=== PATIENT | female | born 1985 | race Caucasian/White ===

== ENCOUNTER 2016-11-14 21:25 | Emergency (ER) | payer SELFPAY ==
[2016-11-14 21:29] VITALS: BP 127/78
[2016-11-14] MEDS ORDERED: MORPHINE SULFATE 10 MG/ML INJ IV ONE (21:42)
[2016-11-14] MEDS ORDERED: NORMAL SALINE 1000 ML 1,000 ML IV ONE (21:43)
--- NOTE | 2016-11-14 21:53 | ER Document Report ---
ED Burn/Smoke/Toxic Fumes - General Chief Complaint: Sunburn Stated Complaint: POSSIBLE LEG BURN Time Seen by Provider: 11/14/16 21:31 Mode of Arrival: Medic Information source: Patient Notes: 30-year-old female presents to ED for sunburn second degree to bilateral legs knees down with blisters some of the blisters open. She states the sunburns were Wednesday. The pain is increased over the last couple days. - HPI Patient complains to provider of: Burn Onset: Other - Wednesday Where: Outdoors Quality of pain: Burning, Throbbing Severity: Severe Pain Level: 5 Context: Other - Sunburn Exposure to: Other - Sunburn Associated Symptoms: Other - pain in bilateral legs Other injuries: LLE, RLE - Related Data Allergies/Adverse Reactions: Penicillins Allergy (Verified 11/14/16 22:14) Sulfa (Sulfonamide Antibiotics) Allergy (Verified 11/14/16 22:14) Past Medical History - General Information source: Patient - Social History Smoking Status: Current Every Day Smoker Cigarette use (# per day): Yes - 1/2 ppd Chew tobacco use (# tins/day): No Smoking Education Provided: Yes - less than 1 min Frequency of alcohol use: Social Drug Abuse: Marijuana Occupation: disabled Lives with: Family Family History: Arthritis, CAD, COPD, DM, Hyperlipidemia, Hypertension, Malignancy. denies: Thyroid Disfunction - Past Medical History Cardiac Medical History: Reports: None Pulmonary Medical History: Reports: None EENT Medical History: Reports: None Neurological Medical History: Reports: Other - TBI Endocrine Medical History: Reports: None Renal/ Medical History: Reports: Hx Ectopic Malignancy Medical History: Reports: None GI Medical History: Reports: None Musculoskeltal Medical History: Reports None Skin Medical History: Reports None Psychiatric Medical History: Reports: None Traumatic Medical History: Reports: Hx Traumatic Brain Injury Infectious Medical History: Reports: None Past Surgical History: Reports: Hx Genitourinary Surgery - removal of ectopic and right tube, Hx Neurologic Surgery - TBI Physical Exam - Vital signs Vitals: Temp Pulse Resp BP Pulse Ox 97.8 F 103 H 16 127/78 H 100 11/14/16 21:28 11/14/16 21:28 11/14/16 21:28 11/14/16 21:28 11/14/16 21:28 Interpretation: Normal - General General appearance: Appears well, Alert - HEENT Head: Normocephalic, Atraumatic Eyes: Normal Pupils: PERRL - Respiratory Respiratory status: No respiratory distress Chest status: Nontender Breath sounds: Normal Chest palpation: Normal - Cardiovascular Rhythm: Regular Heart sounds: Normal auscultation Murmur: No - Abdominal Inspection: Normal Distension: No distension Bowel sounds: Normal Tenderness: Nontender Organomegaly: No organomegaly - Back Back: Normal, Nontender - Extremities General upper extremity: Normal inspection, Nontender, Normal color, Normal ROM , Normal temperature General lower extremity: Normal ROM, Normal temperature, Normal weight bearing. No: Taco's sign Calf: Tender, Other - Second-degree jacques from sunburn to bilateral lower extremities from knee to foot since Wednesday both legs have dark red very tender second-degree jacques with blisters some have already opened some have not.. No: Abrasion, Deformity, Ecchymosis, Instability, Laceration, Unable to bear weight Ankle: Tender - Second-degree jacques from sunburn to bilateral lower extremities from knee to foot since Wednesday both legs have dark red very tender second- degree jacques with blisters some have already opened some have not., Edema, Limited ROM - Due to tenderness from sunburn Foot: Tender - Second-degree jacques from sunburn to bilateral lower extremities from knee to foot since Wednesday both legs have dark red very tender second- degree jacques with blisters some have already opened some have not., Edema, Metatarsal compress. pain - 2 sunburn, No evidence of FB. No: Abrasion, Deformity, Ecchymosis, Instability, Nail injury, Navicular tenderness, Puncture wound, Unable to bear weight - Neurological Neuro grossly intact: Yes Cognition: Normal Orientation: AAOx4 [place] Coma Scale Eye Opening: Spontaneous [place] Coma Scale Verbal: Oriented [place] Coma Scale Motor: Obeys Commands [place] Coma Scale Total: 15 Speech: Normal Motor strength normal: LUE, RUE, LLE, RLE Sensory: Normal - Psychological Associated symptoms: Normal affect, Normal mood - Skin Skin Temperature: Warm Skin Moisture: Dry Skin Color: Normal Course - Re-evaluation Re-evalutation: 11/15/16 01:18 Bilateral legs were treated with bacitracin and Telfa and Kerlix dressing patient was given morphine and first arrival and then treated with Percocet before discharge and discharged home with prescription for Percocet. Patient is from [place] and will be returning home. Patient instructed to follow-up with her primary doctor at home as soon as she gets there to call before going home to schedule an appointment - Vital Signs Vital signs: Temp Pulse Resp BP Pulse Ox 97.8 F 103 H 16 127/78 H 100 11/14/16 21:40 11/14/16 21:40 11/14/16 21:40 11/14/16 21:40 11/14/16 21:40 Discharge - Discharge Clinical Impression: 2nd degree burn bilateral legs, sunburn Condition: Stable Disposition: HOME, SELF-CARE Additional Instructions: Sunburn Sunburn is caused by prolonged exposure to ultraviolet light. This can be natural sunlight or a tanning bed. Your symptoms may include redness or blistering of the skin, fatigue, weakness, and chills that last two or three days. Treatment includes antiinflammatory pain medication, rest, cooling baths, and moisturizing skin cream. Occasionally, cortisone-type medicine is required for severe sunburns. Antihistamines may be helpful if itching is severe as you heal. You should avoid any exposure to ultraviolet light for the next week or two so that further skin damage can be avoided. In the future, you should use sunscreens. Frequent or prolonged ultraviolet light exposure can cause premature skin aging, skin cancers, and wrinkles. Call the doctor if you are not improving in two or three days. Report any drainage, increasing swelling, fever, chills, or other signs of infection. Soap Cleansing Gently wash the wound daily using a mild soap (like Ivory, Phisoderm, Neutrogena). Use warm water, rubbing gently until all debris, ooze, and crusting have been washed from the wound. Allow to dry briefly (about 10 minutes) after cleaning. Repeat this cleansing at least three times a day for the first two days and then once or twice a day. Antibiotic Ointment Protection Your wounds are such that dressing them is not practical or optional. After cleansing, you should apply a thin coating of antibiotic ointment ( Bacitracin, not Neosporin) to the wounds at least three times daily. This lessens infection risk, and may decrease the amount of scarring. Use a q-tip or dull butter knife, not your finger, to apply this ointment. Any debris or ooze which builds up in the ointment should be gently rubbed off with a sterile gauze pad. Harder crusting may need to be gently scrubbed off with a clean wash cloth with soap and warm water, perhaps applying a warm, wet wash cloth to the wound for ten minutes first. Development of redness, severe itching, or blistering may mean allergy to the ointment. See the doctor. Cleaning legs well with soap and water, rinsing well, pat dry, apply bacitracin , and telpha pad then wrap with kerlix. Oral Narcotic Medication You have been given a prescription for pain control. This medication is a narcotic. It's best taken with food, as nausea can result if taken on an empty stomach. Don't operate machinery or drive within six hours of taking this medication. Do not combine this medicine with alcohol, or with any medication which can cause sedation (such as cold tablets or sleeping pills) unless you get permission from the physician. Narcotics tend to cause constipation. If possible, drink plenty of fluids and eat a diet high in fiber and fruits. Call your primary doctor before leaving to go home to schedule appointment for as soon as possible. Return to the ED if increased redness or you develop a fever. FOLLOW-UP CARE: If you have been referred to a physician for follow-up care, call the physician s office for an appointment as you were instructed or within the next two days. If you experience worsening or a significant change in your symptoms, notify the physician immediately or return to the Emergency Department at any time for re-evaluation. Prescriptions: Oxycodone HCl/Acetaminophen [Percocet 5-325 mg Tablet] 1 tab PO Q6HP PRN #20 tablet PRN Reason: Forms: Elevated Blood Pressure, Smoking Cessation Education
[2016-11-14] MEDS ORDERED: BACITRACIN ZINC OINTMENT 15 GM TP ONE (22:48)
[2016-11-14] MEDS ORDERED: BACITRACIN ZINC OINTMENT 15 GM ONE (23:12)
[2016-11-14] MEDS ORDERED: OXYCODONE-ACETAMINOPHEN 5-325 MG TABLET PO ONE (23:49)
== END 2016-11-14 23:58 | disposition home or self-care (01) ==
LOC: ER 21:25
DX: L55.1 Sunburn of second degree (principal); Z88.0 Allergy status to penicillin; F17.210 Nicotine dependence, cigarettes, uncomplicated; Z71.6 Tobacco abuse counseling; Z88.2 Allergy status to sulfonamides
CPT/HCPCS: 99283; 96361; 96374; J2270; J7030; J3490

== ENCOUNTER 2017-05-12 16:08 | Emergency (ER) | payer SELFPAY ==
[2017-05-12] MEDS ORDERED: LIDOCAINE 1% INJ-PF (10 MG/ML) 30 ML SDV INJ ONE (18:12)
--- NOTE | 2017-05-12 18:17 | ER Document Report ---
ED Head/Face/Scalp Injury - General Chief Complaint: Head Injury Stated Complaint: HEAD LACERATION Time Seen by Provider: 05/12/17 17:49 Mode of Arrival: Ambulatory Information source: Patient Notes: 31-year-old female presents to ED for head laceration to left eyebrow. She states she was with her mother in preop while her mother was getting a port inserted when she fell hitting the face onto the ground. TRAVEL OUTSIDE OF THE [place] IN LAST 30 DAYS: No - HPI Patient complains to provider of: Injury, Laceration, Swelling Injury to: Eyebrow Location of problem: Eyebrow Occurred: Just prior to arrival Where: Other - [facility] in pre op waiting Timing: Still present Context: Fell Loss consciousness: No loss of consciousness Remembers: Injury - Related Data Allergies/Adverse Reactions: Penicillins Allergy (Verified 11/14/16 22:14) Sulfa (Sulfonamide Antibiotics) Allergy (Verified 11/14/16 22:14) Past Medical History - General Information source: Patient - Social History Smoking Status: Current Every Day Smoker Cigarette use (# per day): Yes - 1/2 ppd Chew tobacco use (# tins/day): No Smoking Education Provided: Yes - 4 min Frequency of alcohol use: Social Drug Abuse: Marijuana Occupation: disabled Lives with: Family Family History: Arthritis, CAD, COPD, DM, Hyperlipidemia, Hypertension, Malignancy Patient has suicidal ideation: No Patient has homicidal ideation: No - Past Medical History Cardiac Medical History: Reports: None Pulmonary Medical History: Reports: None EENT Medical History: Reports: None Neurological Medical History: Reports: Hx Migraine Endocrine Medical History: Reports: None Renal/ Medical History: Reports: Hx Ectopic Malignancy Medical History: Reports: None GI Medical History: Reports: None Musculoskeltal Medical History: Reports None Skin Medical History: Reports None Psychiatric Medical History: Reports: None Traumatic Medical History: Reports: Hx Traumatic Brain Injury Infectious Medical History: Reports: None Past Surgical History: Reports: Hx Genitourinary Surgery - removal of ectopic and right tube, Hx Neurologic Surgery - TBI Review of Systems - Review of Systems Constitutional: No symptoms reported EENT: No symptoms reported Cardiovascular: No symptoms reported Respiratory: No symptoms reported Gastrointestinal: No symptoms reported Genitourinary: No symptoms reported Female Genitourinary: No symptoms reported Musculoskeletal: No symptoms reported Skin: Other - Laceration to left eyebrow Hematologic/Lymphatic: No symptoms reported Neurological/Psychological: No symptoms reported -: Yes All other systems reviewed and negative Physical Exam - Vital signs Vitals: Temp Pulse Resp BP Pulse Ox 97.9 F 65 16 104/67 100 05/12/17 16:17 05/12/17 16:17 05/12/17 16:17 05/12/17 16:17 05/12/17 16:17 Interpretation: Normal - General General appearance: Appears well, Alert - HEENT Head: Ecchymosis, Open wounds - Laceration to left eyebrow, Tenderness Eyes: Normal Pupils: PERRL Ears: Normal External canal: Normal Tympanic membrane: Normal Sinus: Normal Nasal: Normal Mouth/Lips: Normal Mucous membranes: Normal Pharynx: Normal Neck: Normal - Respiratory Respiratory status: No respiratory distress Chest status: Nontender Breath sounds: Normal Chest palpation: Normal - Cardiovascular Rhythm: Regular Heart sounds: Normal auscultation Murmur: No - Abdominal Inspection: Normal Distension: No distension Bowel sounds: Normal Tenderness: Nontender Organomegaly: No organomegaly - Back Back: Normal, Nontender - Extremities General upper extremity: Normal inspection, Nontender, Normal color, Normal ROM , Normal temperature General lower extremity: Normal inspection, Nontender, Normal color, Normal ROM , Normal temperature, Normal weight bearing. No: Taco's sign - Neurological Neuro grossly intact: Yes Cognition: Normal Orientation: AAOx4 [place] Coma Scale Eye Opening: Spontaneous [place] Coma Scale Verbal: Oriented [place] Coma Scale Motor: Obeys Commands [place] Coma Scale Total: 15 Speech: Normal Motor strength normal: LUE, RUE, LLE, RLE Sensory: Normal - Psychological Associated symptoms: Normal affect, Normal mood - Skin Skin Temperature: Warm Skin Moisture: Dry Skin Color: Normal Skin irregularity: Laceration Location of irregularity: Face - left eyebrow Course - Re-evaluation Re-evalutation: 05/12/17 19:30 Patient instructed to keep the area clean and dry there were sent off to the drainage off and to read return to her primary care doctor in 3 days to have it reassessed in 5 days to have the sutures removed. Patient also encouraged to use sunscreen for the first 2 years to reduce scarring - Vital Signs Vital signs: Temp Pulse Resp BP Pulse Ox 97.9 F 65 16 104/67 100 05/12/17 16:17 05/12/17 16:17 05/12/17 16:17 05/12/17 16:17 05/12/17 16:17 Procedures - Laceration/Wound Repair Left eyebrow Time completed: 19:27 Wound length (cm): 2 Wound's Depth, Shape: Superficial, Linear Laceration pre-procedure: Sterile PPE donned, Sterile drapes applied, Shur- Clens applied Anesthetic type: Other - l.e.t. Volume Anesthetic (mLs): 3 - plus 5 ml of L.E.T. Wound explored: Clean Irrigated w/ Saline (mLs): 100 Wound Repaired With: Sutures Suture Size/Type: 5:0, Ethilon Number of Sutures: 4 Layer Closure?: No Post-procedure wound care: Other - Bacitracin Post-procedure NV exam normal: Yes Complications: No Discharge - Discharge Clinical Impression: Laceration of left eyebrow Qualifiers: Encounter type: initial encounter Qualified Code(s): S01.112A - Laceration without foreign body of left eyelid and periocular area, initial encounter Condition: Stable Disposition: HOME, SELF-CARE Instructions: Family Physicians / Practices Additional Instructions: Facial Laceration A laceration on the face usually heals quickly. Our treatment goal will be to avoid an unsightly scar or stitch-britton. Your cut has been closed with the best techniques to avoid scarring, but a great deal depends on how well you protect the laceration -- and on your inherited tendency to scar. As facial cuts are usually caused by a blunt injury, it's usually best to rest for a day to avoid swelling. Do not allow any bumping or rubbing of the area. Keep the stitches dry. Follow the treatment plan the doctor has discussed with you and DO NOT DELAY getting the stitches out. Once stitches are removed, continue to protect the area from trauma and sunlight (use a sunscreen) for about six months. If any signs of infection occur (swelling, redness, increasing tenderness, red streaks, tender lumps in the neck or near the ear on the side of the laceration, or fever), see the doctor immediately. Acetaminophen Acetaminophen may be taken for pain relief or fever control. It's much safer than aspirin, offering a wider range of "safe" dosages. It is safe during . Some brand names are Tylenol, Panadol, Datril, Anacin 3, Tempra, and Liquiprin. Acetaminophen can be repeated every four hours. The following are maximum recommended dosages: WEIGHT Dose Drops Elixir Chewable( 80mg) (LBS.) drprs=droppers tsp=teaspoon 6 40 mg .4 ml (1/2) 6-11 80 mg .8 ml (full) 1/2 tsp 1 tab 12-16 120 mg 1 1/2 drprs 3/4 tsp 1 1/2 tabs 17-23 160 mg 2 drprs 1 tsp 2 tabs 24-30 240 mg 3 drprs 1 1/2 tsp 3 tabs 30-35 320 mg 2 tsp 4 tabs 36-41 360 mg 2 1/4 tsp 4 1 /2 tabs 42-47 400 mg 2 1/2 tsp 5 tabs 48-53 480 mg 3 tsp 6 tabs 54-59 520 mg 3 1/4 tsp 6 1 /2 tabs 60-64 560 mg 3 1/2 tsp 7 tabs 65-70 600 mg 3 3/4 tsp 7 1 /2 tabs 71-76 640 mg 4 tsp 8 tabs 77-82 720 mg 4 1/2 tsp 9 tabs 83-88 800 mg 5 tsp 10 tabs >89 pounds or adults 650 mg to 900 mg Acetaminophen can be repeated every four hours. Maximum daily dose not to exceed 4000 mg. These maximum recommended dosages are slightly higher than the dosages written on the product container, but these dosages are very safe and well below the toxic dosage for acetaminophen. SOAP CLEANSING: Gently wash the wound daily using a mild soap (like Ivory, Phisoderm, Neutrogena). Use warm water, rubbing gently until all debris, ooze, and crusting have been washed from the wound. Allow to dry briefly (about 10 minutes) after cleaning. Repeat this cleansing at least three times a day for the first two days and then once or twice a day. ANTIBIOTIC OINTMENT PROTECTION: Your wounds are such that dressing them is not practical or optional. After cleansing, you should apply a thin coating of antibiotic ointment ( Bacitracin, not Neosporin) to the wounds at least three times daily. This lessens infection risk, and may decrease the amount of scarring. Use a q-tip or dull butter knife, not your finger, to apply this ointment. Any debris or ooze which builds up in the ointment should be gently rubbed off with a sterile gauze pad. Harder crusting may need to be gently scrubbed off with a clean wash cloth with soap and warm water, perhaps applying a warm, wet wash cloth to the wound for ten minutes first. Development of redness, severe itching, or blistering may mean allergy to the ointment. See the doctor. FOLLOW-UP CARE: Please return in ___2__ days for an infection check and dressing change. Your sutures should be removed in __5___ days. To facilitate a timely removal of your sutures, you may return to the Emergency Department at [facility]. You do not need to call for an appointment, but the best time to come in for suture removal is early in the morning. If you have been referred to another physician for follow-up care, call that physicians office for an appointment as you were instructed. If you experience a significant change in your laceration, or if you are concerned there may be an infection (swelling, redness, drainage, increasing tenderness, red streaks, tender lumps in the armpit or groin above the laceration, or fever) , return to the Emergency Department immediately re-evaluation. Forms: Smoking Cessation Education
[2017-05-12] MEDS ORDERED: LIDOCAINE 4%/TETRACAINE 0.5%/EPI 0.18% 5 ML TOPICAL SOLN TOP ONE (18:35)
[2017-05-12 19:44] VITALS: BP 103/65
== END 2017-05-12 19:40 | disposition home or self-care (01) ==
LOC: ER 16:08
PROC: 0HQ1XZZ Repair Face Skin, External Approach (ICD-10-PCS; principal; 2017-05-12)
DX: S01.112A Laceration without foreign body of left eyelid and periocular area, initial encounter (principal); W19.XXXA Unspecified fall, initial encounter; F17.210 Nicotine dependence, cigarettes, uncomplicated
CPT/HCPCS: 99282; 12011; J3490 ×2

== ENCOUNTER 2017-11-11 01:59 | Emergency (ER) | payer SELFPAY ==
[2017-11-11] MEDS ORDERED: NORMAL SALINE 1000 ML 500 ML IV ONE (02:22)
[2017-11-11] MEDS ORDERED: LEVETIRACETAM 500 MG/NACL-ISO 500 MG/100 ML RTUPB IV ONE (02:22)
[2017-11-11] MEDS ORDERED: DIPHENHYDRAMINE HCL 50 MG/ML VIAL IV ONE (02:22)
[2017-11-11] MEDS ORDERED: METOCLOPRAMIDE HCL INJ/PF 10 MG/2 ML SDV IV ONE (02:22)
--- NOTE | 2017-11-11 02:24 | ER Document Report ---
ED Seizure - General Chief Complaint: Seizure Stated Complaint: POSSIBLE SEIZURE Time Seen by Provider: 11/11/17 02:09 Notes: Patient is a 31-year-old female with a history of traumatic brain injury and seizures (injury 3 years ago, left sided hemiparesis, seizures for the past 2 years, on Topamax), that comes emergency department for chief complaint of a tonic-clonic seizure lasting for 5 minutes. Last seizure was 2 months ago. Patient was witnessed beginning to have a seizure and eased to the ground by sister and mother. No fever, no vomiting, patient did have alcohol in celebration of the holiday. Patient states she has been compliant with her Topamax. Patient complains of a headache but no other complaints at this time. Patient is visiting from [place]. - Related Data Allergies/Adverse Reactions: Penicillins Allergy (Verified 11/14/16 22:14) Sulfa (Sulfonamide Antibiotics) Allergy (Verified 11/14/16 22:14) metoclopramide [From Reglan] Adverse Reaction (Verified 11/11/17 02:55) Past Medical History - General Information source: Patient, Relative - Sister - Social History Smoking Status: Current Every Day Smoker Chew tobacco use (# tins/day): No Frequency of alcohol use: Occasional Drug Abuse: None Lives with: Family Family History: Arthritis, CAD, COPD, DM, Hyperlipidemia, Hypertension, Malignancy Patient has suicidal ideation: No Patient has homicidal ideation: No Neurological Medical History: Reports: Hx Migraine, Hx Seizures Renal/ Medical History: Reports: Hx Ectopic . Denies: Hx Peritoneal Dialysis Traumatic Medical History: Reports: Hx Traumatic Brain Injury Past Surgical History: Reports: Hx Genitourinary Surgery - removal of ectopic and right tube, Hx Neurologic Surgery - TBI Review of Systems - Review of Systems Constitutional: No symptoms reported EENT: No symptoms reported Cardiovascular: No symptoms reported Respiratory: No symptoms reported Gastrointestinal: No symptoms reported Genitourinary: No symptoms reported Female Genitourinary: No symptoms reported Musculoskeletal: No symptoms reported Skin: No symptoms reported Hematologic/Lymphatic: No symptoms reported Neurological/Psychological: See HPI Physical Exam - Vital signs Vitals: Resp Pulse Ox 20 97 11/11/17 02:34 11/11/17 02:34 - Notes Notes: GENERAL: Alert, interacts well. No acute distress. HEAD: Normocephalic, atraumatic. EYES: Pupils equal, round, and reactive to light. Extraocular movements intact. ENT: Oral mucosa moist, tongue midline. NECK: Full range of motion. Supple. Trachea midline. LUNGS: Clear to auscultation bilaterally, no wheezes, rales, or rhonchi. No respiratory distress. HEART: Regular rate and rhythm. No murmur ABDOMEN: Soft, non-tender. Non-distended. Bowel sounds present in all 4 quadrants. EXTREMITIES: Moves all 4 extremities spontaneously. No edema, normal radial and dorsalis pedis pulses bilaterally. No cyanosis. BACK: no cervical, thoracic, lumbar midline tenderness. No saddle anesthesia, normal distal neurovascular exam. NEUROLOGICAL: Alert and oriented x3. Normal speech. Cranial nerves unremarkable. Patient with left-sided arm and leg deficit, almost no strength in both of these. Normal neurological examination otherwise. PSYCH: Normal affect, normal mood. SKIN: Warm, dry, normal turgor. No rashes or lesions noted. Course - Re-evaluation Re-evalutation: Patient is alert and well-appearing. Chronic left-sided hemiparesis. Reported drinking alcohol. Because of the alcohol and the extended seizure, patient was given IV fluids, Keppra, workup performed. No more alcohol in her system. Unremarkable workup. Patient complaining of headache, she is medicated for this , afterwards headache resolved. Patient drowsy but arousable. Requesting to go home. Patient has neurologist [facility], advised avoiding alcohol, discussed follow-up and return precautions in detail, patient and sister state understanding and agreement. Stable at time of discharge. - Vital Signs Vital signs: Temp Pulse Resp BP Pulse Ox 98.0 F 16 104/71 94 11/11/17 02:54 11/11/17 04:01 11/11/17 04:00 11/11/17 04:01 - Laboratory Result Diagrams: 11/11/17 02:30 11/11/17 02:30 Laboratory results interpreted by me: 11/11/17 11/11/17 02:30 02:30 Lymphocytes % 46.6 H Chloride 108 H Discharge - Discharge Clinical Impression: Seizure disorder, Seizure Condition: Stable Disposition: HOME, SELF-CARE Additional Instructions: No concerning findings were noted on laboratory evaluation. You were given a dose of Keppra and IV fluids tonight. Avoid alcohol. Follow-up with your neurologist for additional evaluation and management. Continue current medications. Return for any concerning symptoms including severe headache, repeat seizures, fever, or any other concerning or worsening symptoms.
[2017-11-11] MEDS ORDERED: KETOROLAC TROMETHAMINE INJ/PF 30 MG/1 ML SDV IV ONE (02:54)
[2017-11-11 02:59] LABS: ABSOLUTE EOSINOPHILS # (AUTO) 0.1 10^3/uL (0.0-0.6); ABSOLUTE LYMPHOCYTES (AUTO) 3.4 10^3/uL (0.5-4.7); ABSOLUTE MONOCYTES (AUTO) 0.5 10^3/uL (0.1-1.4); ABSOLUTE NEUT (AUTO) 3.2 10^3/uL (1.7-8.2); BASOPHILS % (AUTO) 0.5 % (0-2); EOSINOPHILS % (AUTO) 1.6 % (0-6); HEMATOCRIT 37.5 % (36.0-47.0); HEMOGLOBIN 12.9 g/dL (12.0-15.5); LYMPHOCYTES % (AUTO) 46.6 % (13-45); MEAN CORPUSCULAR HEMOGLOBIN 32.2 pg (27.0-33.4); MEAN CORPUSCULAR HGB CONC 34.5 g/dL (32.0-36.0); MEAN CORPUSCULAR VOLUME 93 fl (80-97); MONOCYTES % (AUTO) 6.7 % (3-13); PLATELET COUNT 187 10^3/uL (150-450); RED BLOOD COUNT 4.02 10^6/uL (3.72-5.28); RED CELL DISTRIBUTION WIDTH 13.3 % (11.5-14.0); SEGMENTED NEUTROPHILS % (AUTO) 44.6 % (42-78); TOTAL CELLS COUNTED % (AUTO) 100 %; WHITE BLOOD COUNT 7.3 10^3/uL (4.0-10.5)
[2017-11-11] MEDS ORDERED: PROMETHAZINE HCL 25 MG TABLET PO ONE (03:05)
[2017-11-11 03:10] LABS: ALANINE AMINOTRANSFERASE 28 U/L (9-52); ALBUMIN 3.9 g/dL (3.5-5.0); ALKALINE PHOSPHATASE 52 U/L (38-126); ANION GAP 11 (5-19); ASPARTATE AMINO TRANSFERASE 19 U/L (14-36); BILIRUBIN,DIRECT 0.2 mg/dL (0.0-0.4); BILIRUBIN,TOTAL 0.2 mg/dL (0.2-1.3); BLOOD UREA NITROGEN 9 mg/dL (7-20); CALCIUM 9.3 mg/dL (8.4-10.2); CARBON DIOXIDE 24 mmol/L (22-30); CHLORIDE 108 mmol/L (98-107); GLUCOSE 108 mg/dL (75-110); POTASSIUM 3.8 mmol/L (3.6-5.0); SODIUM 143.1 mmol/L (137-145); TOTAL PROTEIN 6.5 g/dL (6.3-8.2)
[2017-11-11 03:13] LABS: ALCOHOL < 10 mg/dL (NONE DETECTED)
[2017-11-11 04:09] VITALS: BP 104/71
== END 2017-11-11 04:20 | disposition home or self-care (01) ==
LOC: ER 01:59
DX: G40.909 Epilepsy, unspecified, not intractable, without status epilepticus (principal); R51 Headache; Z87.820 Personal history of traumatic brain injury; F17.200 Nicotine dependence, unspecified, uncomplicated
CPT/HCPCS: 99284; 96374; 96375; 36415; 80307; 83735; 84703; 85025; 80053; J1200; J1885; J7030; J1953; J2765

== ENCOUNTER 2018-08-28 10:11 | Emergency (ER) | payer SELFPAY ==
[2018-08-28 10:16] VITALS: BP 115/75
[2018-08-28] MEDS ORDERED: HYDROCODONE/ACETAMINOPHEN 5-325 MG TABLET PO ONE (10:25)
--- NOTE | 2018-08-28 10:27 | ER Document Report ---
HPI - HPI Patient complains to provider of: Pain left shoulder and clavicle times 3 days woke up with pain Time Seen by Provider: 08/28/18 10:21 Onset: Other - Today's Onset/Duration: Constant Quality of pain: Sharp Severity: Severe Pain Level: 5 Context: 32-year-old female presents to ED for complaint of left shoulder and clavicle pain. She states she woke up this way 3 days ago and she thinks she had a seizure during the night. She has a history of seizures. She had a traumatic injury causing a brain bleed and she now has seizures. She states there was broken glass in the morning when her shoulder was hurting so she sure she injured her shoulder at the stop and seen by since this happened. Patient is alert oriented respirations regular and unlabored speaking in full sentences. She states she always has weakness to the left arm since her brain injury. Associated Symptoms: Other - Left shoulder and clavicle pain Exacerbated by: Movement Relieved by: Denies Similar symptoms previously: Yes Recently seen / treated by doctor: No - ROS ROS below otherwise negative: Yes - CONSTITUTIONAL Constitutional: DENIES: Fever, Chills - EENT EENT: DENIES: Sore Throat, Ear Pain, Nasal Drainage-Clear, Nasal Drainage- Purulent, Congestion, Eye problems - NEURO Neurology: DENIES: Headache, Weakness, Vision blurred, Dizzinesss / Vertigo - CARDIOVASCULAR Cardiovascular: DENIES: Chest pain - RESPIRATORY Respiratory: DENIES: Trouble Breathing, Coughing - GASTROINTESTINAL Gastrointestinal: DENIES: Abdominal Pain, Nausea, Patient vomiting, Diarrhea, Constipation, Black / Bloody Stools - URINARY Urinary: DENIES: Dysuria, Urgency, Frequency - REPRODUCTIVE Reproductive: DENIES: :, Postmenopausal, Abnormal bleeding / discharge - MUSCULOSKELETAL Musculoskeletal: REPORTS: Extremity pain - Left shoulder and clavicle milli. DENIES: Back Pain, Neck Pain, Swelling - DERM Skin Color: Normal Skin Problems: None Past Medical History - General Information source: Patient - Social History Smoking Status: Current Every Day Smoker Cigarette use (# per day): Yes - Pack per day Chew tobacco use (# tins/day): No Frequency of alcohol use: Social Drug Abuse: None Lives with: Family Family History: Arthritis, CAD, COPD, DM, Hyperlipidemia, Hypertension, Malignancy Patient has suicidal ideation: No Patient has homicidal ideation: No - Past Medical History Cardiac Medical History: Reports: None Pulmonary Medical History: Reports: None Neurological Medical History: Reports: Hx Cerebrovascular Accident - Had a traumatic injury causing a brain bleed, Hx Migraine, Hx Seizures Endocrine Medical History: Reports: None Renal/ Medical History: Reports: Hx Ectopic Malignancy Medical History: Reports: None GI Medical History: Reports: None Musculoskeletal Medical History: Reports Hx Muscle Spasm, Reports Hx Muscle Weakness - Left-sided weakness Skin Medical History: Reports None - Left side Psychiatric Medical History: Reports: None Traumatic Medical History: Reports: Hx Traumatic Brain Injury Infectious Medical History: Reports: None Past Surgical History: Reports: Hx Genitourinary Surgery - removal of ectopic and left tube, Hx Neurologic Surgery - TBI with brain bleed - Immunizations Immunizations up to date: Yes Hx Diphtheria, Pertussis, Tetanus Vaccination: Yes Vertical Provider Document - CONSTITUTIONAL Agree With Documented VS: Yes Exam Limitations: No Limitations General Appearance: WD/WN, No Apparent Distress - INFECTION CONTROL TRAVEL OUTSIDE OF THE [place] IN LAST 30 DAYS: No - HEENT HEENT: Atraumatic, Normal ENT Exam, Normocephalic, PERRLA - NECK Neck: Normal Inspection, Supple - RESPIRATORY Respiratory: Breath Sounds Normal, No Respiratory Distress, Chest Non-Tender - CARDIOVASCULAR Cardiovascular: Regular Rate, Regular Rhythm, No Murmur - BACK Back: Normal Inspection - MUSCULOSKELETAL/EXTREMETIES Musculoskeletal/Extremeties: Tender - Left shoulder. negative: FROM - Decreased range of motion left shoulder since her traumatic brain injury and stroke, Edema, Eccymosis - NEURO Level of Consciousness: Awake, Alert, Appropriate Motor/Sensory: Weak Motor Strength LUE - DERM Integumentary: Warm, Dry, No Rash Course - Vital Signs Vital signs: Temp Pulse Resp BP Pulse Ox 98.0 F 100 16 115/75 100 08/28/18 10:15 08/28/18 10:15 08/28/18 10:15 08/28/18 10:15 08/28/18 10:15 - Diagnostic Test Radiology reviewed: Image reviewed, Reports reviewed Procedures - Immobilization Left Shoulder Time completed: 10:37 Pre-Proc Neuro Vasc Exam: Normal Immobilizer type: Sling Performed by: PCT Post-Proc Neuro Vasc Exam: Normal Alignment checked and good: Yes Discharge - Discharge Clinical Impression: Left shoulder pain Qualifiers: Chronicity: acute Qualified Code(s): M25.512 - Pain in left shoulder Condition: Stable Disposition: HOME, SELF-CARE Instructions: Family Physicians / Practices Additional Instructions: Shoulder Injury You have injured your shoulder. This usually results from stretching or tearing of the tendons during trauma. Time and protection are required in order to heal properly. Many injuries are quite disabling, and should be taken seriously. Initial treatment includes cold packs and a sling to rest the shoulder. The physician has assessed the seriousness of your injury, and has outlined a treatment plan. Understand that this treatment may change, depending on how you progress. If a re-examination was recommended, it is important that you follow up as instructed. Some shoulder injuries (such as partial tear of the rotator cuff) are only suspected after you've failed to improve. Call us if there's severe pain, numbness, or loss of function. Exercise Program for the Shoulder Since the shoulder moves in so many directions, the joint attachment is weak. Muscles provide most of the stability to the shoulder. You must exercise your shoulder to prevent painful instability or stiffening. PASSIVE - These may be begun within a few days of the injury. While standing, lean forward, allowing the arm to hang down towards the floor. Move the arm in small circles while slowly twisting your chest towards and away from the hanging arm. Do this for one minute. ACTIVE - These may be performed when the doctor gives permission. Begin with the arms at the sides. Raise the arms forward (shoulder's width apart) until they reach shoulder level. Then slowly swing both arms back until they are aiming straight out away from each other. Then bring them forward again, and finally, lower them to your sides. Repeat 20 to 30 times. As you improve, put weights in your hands for the exercise. Start with one pound, and work up to 10 pounds. Never use more than is comfortable. Athletes may work up to 30 pounds. Sling as Treatment A sling has been applied to protect the injury. This is adequate immobilization for this type of injury -- no cast or brace is required. Keep the sling on at all times until instructed to remove it by the doctor. Even though no cast or splint is needed, you must use the sling. If you use the arm too soon, it may not heal properly! If necessary, the sling can be adjusted for comfort. Return if you are encountering problems with the sling. Ice Packs Apply ice packs frequently against the painful area. Many different schedules are recommended, such as "20 minutes on, 20 minutes off" or "one hour ice, two hours rest." If you need to work, you may need to go longer between ice treatments. You should plan to have the area ice packed AT LEAST one fourth of the time. The ice should be applied over the wrap, tape, or splint, or over a layer of cloth -- not directly against the skin. Some ice bags have a built-in cloth and can be put directly on the skin. Acetaminophen Acetaminophen may be taken for pain relief or fever control. It's much safer than aspirin, offering a wider range of "safe" dosages. It is safe during . Some brand names are Tylenol, Panadol, Datril, Anacin 3, Tempra, and Liquiprin. Acetaminophen can be repeated every four hours. The following are maximum recommended dosages: WEIGHT Dose Drops Elixir Chewable(80mg) (LBS.) drprs=droppers tsp=teaspoon 6 40 mg .4 ml (1/2) 6-11 80 mg .8 ml (full) 1/2 tsp 1 tab 12-16 120 mg 1 1/2 drprs 3/4 tsp 1 1/2 tabs 17-23 160 mg 2 drprs 1 tsp 2 tabs 24-30 240 mg 3 drprs 1 1/2 tsp 3 tabs 30-35 320 mg 2 tsp 4 tabs 36-41 360 mg 2 1/4 tsp 4 1/2 tabs 42-47 400 mg 2 1/2 tsp 5 tabs 48-53 480 mg 3 tsp 6 tabs 54-59 520 mg 3 1/4 tsp 6 1/2 tabs 60-64 560 mg 3 1/2 tsp 7 tabs 65-70 600 mg 3 3/4 tsp 7 1/2 tabs 71-76 640 mg 4 tsp 8 tabs 77-82 720 mg 4 1/2 tsp 9 tabs 83-88 800 mg 5 tsp 10 tabs >89 pounds or adults 650 mg to 900 mg Acetaminophen can be repeated every four hours. Maximum daily dose not to exceed 4000 mg. These maximum recommended dosages are slightly higher than the dosages written on the product container, but these dosages are very safe and well below the toxic dosage for acetaminophen. Ibuprofen Ibuprofen is an excellent, safe drug for pain control. In addition, it has potent antiinflammatory effects which are beneficial, especially in the treatment of injuries, arthritis, or tendonitis. It's best to take ibuprofen with food. Persons with ulcer disease or allergy to aspirin should notify their physician of this before taking ibuprofen. Take the medication exactly as prescribed. Don't take additional doses unless instructed to do so by your doctor. If you develop wheezing, shortness of breath, hives, faintness, stomach pain, vomiting, or dark black stools, return for re-evaluation at once. FOLLOW-UP CARE: If you have been referred to a physician for follow-up care, call the physicians office for an appointment as you were instructed or within the next two days. If you experience worsening or a significant change in your symptoms, notify the physician immediately or return to the Emergency Department at any time for re-evaluation. Referrals: [facility] [Provider Group] - Follow up as needed
--- NOTE | 2018-08-28 11:06 | RADIOLOGY REPORT (SQ) ---
EXAM DESCRIPTION: CLAVICLE LEFT COMPLETED DATE/TIME: 08/28/2018 10:58 am REASON FOR STUDY: pain for 3 days no improving COMPARISON: None. NUMBER OF VIEWS: Two views. TECHNIQUE: Frontal and angled images were acquired of the left clavicle. LIMITATIONS: None. FINDINGS: MINERALIZATION: Normal. BONES: No acute fracture or dislocation. No worrisome bone lesions. SOFT TISSUES: No obvious swelling or foreign body. OTHER: No other significant finding. IMPRESSION: NEGATIVE STUDY OF THE LEFT CLAVICLE. NO RADIOGRAPHIC EVIDENCE OF ACUTE INJURY. TECHNICAL DOCUMENTATION: JOB ID: [id number] [employer]- All Rights Reserved Reading location - IP/workstation name: [email or web address]
--- NOTE | 2018-08-28 11:07 | RADIOLOGY REPORT (SQ) ---
EXAM DESCRIPTION: SHOULDER LEFT 2 OR MORE VIEWS COMPLETED DATE/TIME: 08/28/2018 10:58 am REASON FOR STUDY: pain for 3 days no improving COMPARISON: None. NUMBER OF VIEWS: Three views. TECHNIQUE: Internal rotation, external rotation, and Y view images acquired of the left shoulder. LIMITATIONS: None. FINDINGS: MINERALIZATION: Normal. BONES: No acute fracture or dislocation. No worrisome bone lesions. JOINTS: No dislocation. VISUALIZED LUNGS AND RIBS: No pneumothorax. No rib fracture. SOFT TISSUES: No radiopaque foreign body. OTHER: No other significant finding. IMPRESSION: NEGATIVE STUDY OF THE LEFT SHOULDER. NO RADIOGRAPHIC EVIDENCE OF ACUTE INJURY. TECHNICAL DOCUMENTATION: JOB ID: [id number] [employer]- All Rights Reserved Reading location - IP/workstation name: [email or web address]
== END 2018-08-28 11:23 | disposition home or self-care (01) ==
LOC: ER 10:11
DX: M25.512 Pain in left shoulder (principal); F17.210 Nicotine dependence, cigarettes, uncomplicated; Z87.820 Personal history of traumatic brain injury
CPT/HCPCS: 99283